=== PATIENT | male | born 1990 | race African-American/Black ===

== ENCOUNTER 2017-02-08 08:38 | Emergency (ER) | payer OTHER ==
[2017-02-08 08:48] VITALS: BP 130/56; TEMP 98.8; BMI 22.3
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
[2017-02-08 10:22] VITALS: PULSE 88
[2017-02-08] MEDS ORDERED: IBUPROFEN 600 MG TABLET (FP) PO ONE ×2 (10:22→10:25)
[2017-02-08] MEDS ORDERED: FLUORESCEIN NA 1 EA STRIP ONE (10:25)
== END 2017-02-08 10:31 | disposition home or self-care (01) ==
LOC: JERFT 08:38
DX: S09.8XXA Other specified injuries of head, initial encounter (principal); S00.83XA Contusion of other part of head, initial encounter; S80.212A Abrasion, left knee, initial encounter; S80.211A Abrasion, right knee, initial encounter; H11.31 Conjunctival hemorrhage, right eye; Y04.2XXA Assault by strike against or bumped into by another person, initial encounter; Y93.89 Activity, other specified; Y92.89 Other specified places as the place of occurrence of the external cause; Y07.9 Unspecified perpetrator of maltreatment and neglect
CPT/HCPCS: 70450-TC; 70480-TC; 99281-25